=== PATIENT | female | born 1975 | race Caucasian/White ===

== ENCOUNTER 2018-07-24 18:16 | Emergency (ER) | payer BC ==
[2018-07-24 19:19] VITALS: BP 110/68
[2018-07-24] MEDS ORDERED: Albuterol 2.5 MG/3 ML NEB.SOL* (0.083%) INH ONE (19:45)
--- NOTE | 2018-07-24 19:51 | UC ---
Respiratory Complaint HPI - HPI Summary HPI Summary: 43-year-old woman comes in with a chief complaint of wheezing and shortness of breath. About 2 weeks ago patient started with upper respiratory tract bronchitis symptoms. She's been having wheezing. He does have a history of asthma but it's pretty rare that she gets an exacerbation. She with her primary care doctor started her on a Medrol Dosepak and got a new inhaler. She' s been using the inhaler which does help. The Medrol Dosepak and it this morning. The wheezing and shortness of breath got worse during the day. The rescue inhaler was not very effective. No pedal edema no calf pain. No fevers. She feels congestion in her chest that she can't get up. - History of Current Complaint Chief Complaint: UCAsthma Stated Complaint: ASTHMA Time Seen by Provider: 07/24/18 19:27 Hx Last Menstrual Period: 06/12/18 Pain Intensity: 4 - Allergies/Home Medications Allergies/Adverse Reactions: Allergies Allergy/AdvReac Type Severity Reaction Status Date / Time No Known Allergies Allergy Verified 06/01/18 14:35 Home Medications: Home Medications Fluticas/Salmet 115/21 HFA(NF) [Advair HFA 115/21 (NF)] 1 puff INH DAILY WITH MEAL 07/24/18 [History Confirmed 07/24/18] predniSONE [Deltasone 20 MG TAB] 20 mg PO DAILY WITH MEAL 07/24/18 [History Confirmed 07/24/18] PMH/Surg Hx/FS Hx/Imm Hx Previously Healthy: Yes Respiratory History: Asthma - Surgical History Surgical History: None Surgery Procedure, Year, and Place: DENIES - Family History Known Family History: Positive: Non-Contributory - Social History Alcohol Use: None Alcohol Amount: states none while , otherwise occasional social use Substance Use Type: None Smoking Status (MU): Never Smoked Tobacco Have You Smoked in the Last Year: No - Immunization History Most Recent Influenza Vaccination: declined at visit, may get post Most Recent Tetanus Shot: unsure Most Recent Pneumonia Vaccination: never Review of Systems All Other Systems Reviewed And Are Negative: Yes Constitutional: Positive: Negative Skin: Positive: Negative Eyes: Positive: Negative ENT: Positive: Sinus Congestion - POST NASAL DRIP Respiratory: Positive: Shortness Of Breath, Cough, Other - WHEEZING Cardiovascular: Positive: Negative Gastrointestinal: Positive: Negative Motor: Positive: Negative Neurovascular: Positive: Decreased Sensation Musculoskeletal: Positive: Negative Neurological: Positive: Negative Psychological: Positive: Negative Is Patient Immunocompromised?: No Physical Exam Triage Information Reviewed: Yes Appearance: Well-Appearing, No Pain Distress, Well-Nourished Vital Signs: Initial Vital Signs Temp 98.7 F 07/24/18 19:14 Pulse 62 07/24/18 19:14 Resp 18 07/24/18 19:14 BP 110/68 07/24/18 19:14 Pulse Ox 100 07/24/18 19:14 Vital Signs Reviewed: Yes Eye Exam: Normal Eyes: Positive: Conjunctiva Clear ENT: Positive: Pharynx normal, TMs normal Neck exam: Normal Neck: Positive: Supple, Nontender Respiratory: Positive: Lungs clear, Normal breath sounds, No respiratory distress, Other: - COUGH WITH DEEP INSPIRATION Cardiovascular: Positive: RRR Musculoskeletal Exam: Normal Musculoskeletal: Positive: Strength Intact, ROM Intact, No Edema, Other: - NO CALF TENDERNESS Neurological Exam: Normal Neurological: Positive: Alert, Muscle Tone Normal Psychological Exam: Normal Psychological: Positive: Age Appropriate Behavior Skin Exam: Normal Respiratory Course/Dx - Course Course Of Treatment: DISCUSSED VIRAL VERSES BACTERIAL INFECTION AND THE ROLE OF ANTIBIOTICS. THE PATIENT DOES NOT WISH TO BE ON ANTIBIOTICS AT THIS TIME. DECLINED ANY FURTHER PO STEROIDS. HAS APPOINTMENT WITH PMD TOMORROW. - Differential Dx/Diagnosis Provider Diagnosis: Bronchitis with bronchospasm, Asthma Discharge - Sign-Out/Discharge Documenting (check all that apply): Patient Departure All imaging exams completed and their final reports reviewed: No Studies - Discharge Plan Condition: Stable Disposition: HOME Patient Education Materials: Acute Bronchitis (ED), Bronchospasm (ED), Asthma ( ED) Referrals: Arun Obrien MD [Primary Care Provider] - Additional Instructions: FOLLOW UP WITH YOUR DOCTOR TOMORROW, 07/25/18, SCHEDULED. GET RECHECKED SOONER FOR ANY WORSENING OF YOUR CONDITION OR QUESTIONS OR CONCERNS. - Billing Disposition and Condition Condition: STABLE Disposition: Home
== END 2018-07-24 20:25 | disposition home or self-care (01) ==
LOC: UCEAST 18:16
DX: J45.909 Unspecified asthma, uncomplicated (principal)
CPT/HCPCS: 99212; G0463